=== PATIENT | male | born 1955 ===

== ENCOUNTER 2019-02-13 00:51 | Day surgery (SDC) | payer MEDICARE, MEDICAID ==
[~2019-02-13] VITALS: Ht 167.6 cm; Wt 78.5 kg
[2019-02-13] VITALS (8 sets, daily range): BP systolic 145–166; BP diastolic 87–107
[~2019-02-13 00:51] MED LIST: CITA-145 PO; CLON-388 PO; FLUT1DIS29 IH; IBUP600T22 PO; IBUP800T37 PO; LISI-362 PO; TRAZ100T31 PO
[2019-02-13] MEDS ORDERED: CELECOXIB 200 MG CAP PO ONE (08:30)
[2019-02-13] MEDS ORDERED: FAMOTIDINE 20 MG TAB PO ONE (09:00)
[2019-02-13] MEDS ORDERED: NORMOSOL R SOLN(*) 1000 ML BAG 1,000 ML IV PRN (09:00)
[2019-02-13] MEDS ORDERED: LIDOCAINE/SOD BICARB 8.4% SYR ID ONE (09:00)
[2019-02-13] MEDS ORDERED: MIDAZOLAM 2 MG/2 ML VIAL IVP PRN (09:00)
[2019-02-13] MEDS ORDERED: BACITRACIN/POLYMY B OINT 15 GM TP ONE (09:33)
[2019-02-13] MEDS ORDERED: BUPIV/EPI 0.25% 1:200,000 50ML INFIL ONE (09:33)
[2019-02-13] MEDS ORDERED: ROPIVACAINE 0.2% 20 ML VIAL ONE (09:34)
[2019-02-13] MEDS ORDERED: ceFAZolin(*) 2GM/D5W 50ML 50 ML IVPB ONE (09:45)
[2019-02-13] MEDS ORDERED: MIDAZOLAM 2 MG/2 ML VIAL ONE (09:49)
[2019-02-13] MEDS ORDERED: ONDANSETRON 4 MG/2 ML VIAL ONE (12:39)
[2019-02-13] MEDS ORDERED: PROPOFOL EMUL(*) 10MG/ML 20 ML 20 ML ONE (12:39)
[2019-02-13] MEDS ORDERED: DEXAMETHASONE SOD PHOS 10MG/ML ONE (12:39)
[2019-02-13] MEDS ORDERED: fentaNYL CITR 100 MCG/2 ML AMP ONE (13:15)
[2019-02-13] MEDS ORDERED: OXYC5CAP21 PO (13:19)
[2019-02-13] MEDS ORDERED: CEPH500T7 PO (13:28)
[2019-02-13] MEDS ORDERED: oxyCODONE HCL 5 MG CAP ONE (14:24)
[2019-02-13] MEDS ORDERED: hydrALAZINE HCL 20 MG/ML VIAL IVP ONE (14:50)
--- NOTE | 2019-02-13 14:50 | OPERATIVE REPORT 1 ---
EVENT DATE: February 13, 2019 SURGEON: Wilman Moran MD ANESTHESIOLOGIST: Gunner Duran MD ANESTHESIA: General. IT OPERATIONS ANALYST: MARK Newsome PREOPERATIVE DIAGNOSIS Advanced degenerative change, right wrist, with cubital tunnel syndrome. POSTOPERATIVE DIAGNOSIS Advanced degenerative change, right wrist, with cubital tunnel syndrome. PROCEDURES PERFORMED 1. Right total wrist fusion with iliac crest bone autograft (07925). 2. Posterior interosseous neurectomy and anterior interosseous neurectomy (30595 times two). 3. Cubital tunnel release in situ (53606). 4. Intraoperative radiography for screw lengths and hardware position (60435). ESTIMATED BLOOD LOSS 50. INTRAVENOUS FLUIDS 1200. TOURNIQUET TIME 12 minutes up, 20 minutes down, 86 minutes up, and the tourniquet pressure was 250 mmHg. SUMMARY OF PROCEDURE The patient was brought into the operating room and placed on the OR table in the supine position. After obtaining adequate general anesthesia, the right upper extremity and the right iliac crest were prepped and draped in the usual sterile fashion. A sterile tourniquet was used. The limb was exsanguinated, and the tourniquet was inflated to 250 mmHg. We started with an incision at the cubital tunnel, deepened through skin and subcutaneous tissue. Blunt spreading was taken down, and then we identified one large trunk of the medial antebrachial cutaneous nerve. It was about two to three times the normal size, but no other smaller branches were seen. Once we had mobilized this and protected it, we began the release of the ulnar nerve proximally and followed it distally through Eddy fascia. There was no subluxation. The wound was irrigated, and then we deflated the tourniquet at 12 minutes, looking for a 20- minute down time. During this down time, we exposed the iliac crest by progressive dissection through the skin, subcutaneous tissue, and then through the fascia. A Perley elevator was placed on the outer table to krzysztof its access, and then we placed a Baby Kaur medially to expose the apex of the crest. A dent was made, and then we made a single exposure of the bone through a drill hole using the harvesting tool. After we made our first pass, we made three additional passes through the same hole in a fan-shaped pattern. We got a nice amount of cancellous bone. All of the passes were confirmed to be contained within the tables. The wound was irrigated, and then we took Marcaine-soaked Gelfoam sponges and packed them into the defect, after which we also injected the fascia and the local tissues. The wound was irrigated one more time before closing the fascia with 0 Vicryl, and then we packed it with a moist Ray-Julius as we had for the cubital tunnel. At this time, the 20-minute interval had occurred, so we exsanguinated the limb one more time. I switched places with my social work assistant and then made a dorsal incision on the wrist. The retinaculum was extremely small, but we did save what we could on it and then retracted it. The EPL was radialized and placed on a 1/4-inch [place]. Similarly, the ECRL and ECRB were placed on another Maikol, and then the contents of the fourth dorsal compartment were placed onto a final Maikol, which was retracted to the ulnar side. The fascia was incised. He had an accessory muscle over the hand extensor manus, which was resected. It was innervated by the posterior interosseous nerve terminal branch. A segmental resection of the posterior interosseous nerve was made, after which I made a very small window in the interosseous membrane, identified the posterior portion of the anterior interosseous nerve, and resected this for postoperative pain control as well. After exposing the bones of the carpus and the radius, we then removed the massive bone that had been a problem for him, which turned out to be projecting from the arthritic scaphoid. We also took a portion of the styloid off, which was projecting as well. I then removed what remained for cartilage and then irrigated one final time before using a henri to decorticate all intended fusion surfaces. We packed bone graft from the iliac crest into all the areas that we needed to get fused and then temporarily placed two crossing K-wires as well as the joystick K-wires, allowing for compression. When we got adequate compression, and the K-wires were placed, the joystick toggling K-wires were removed, and we applied the dorsal plate. We placed the first few screws in compression, and then the remainder were placed in locking position. The fluoroscope was used to check the screw lengths as well as the integrity of the fusion. We did eventually remove the temporary crossing K-wires, and once we had full fixation, it looked like the triquetrum was still not quite captured by the screws, so I did place one percutaneous K-wire that helped hold the triquetrum against the rest of the carpal bones so it would not go on to a nonunion. A [place] ball was placed on this one. We irrigated the wound and packed a little bit more bone graft before closing with 4-0 Vicryl for the capsule, which we could close over the top of the plate, after which we closed the retinaculum with 4-0 FiberWire and then deflated the tourniquet. Bipolar cautery was used where necessary for hemostasis, followed by closure using nylon for the wrist, 3-0 and 4-0 Vicryl for the cubital tunnel, and then the 3-0 Vicryl and 4-0 Monocryl for the iliac crest as well. He was given an JULY wrist cooler and then a dressing, followed by a volar splint. He was awakened and transferred to the post-anesthesia care unit in stable condition. AURELIANO
[2019-02-17] MEDS ORDERED: OXYC-865 PO (19:23)
== END 2019-02-13 14:10 | disposition home or self-care (01) ==
LOC: OR 00:51
PROVIDERS: ATTEND Orthopaedic Surgery Hand Surgery
DX: G56.21 Lesion of ulnar nerve, right upper limb (principal)
CPT/HCPCS: 25810; 64784; A4565; A9270; J0360; J1100; J2250; J2405; J2704; J2795; J3010; 76000; 76942; C1713; J0690

== ENCOUNTER → 2019-02-17 | Day surgery (SDC) | payer MEDICARE, MEDICAID ==
[~2019-02-17] VITALS: Ht 167.6 cm; Wt 77.6 kg
[~2019-02-17] MED LIST changes: +BACITRACIN IR PRN; +CEPH500T7 PO; +DEXAMETHASONE SOD 4 MG/ML VIAL ONE; +FAMOTIDINE 20 MG TAB PO ONE; +KETAMINE HCL 200 MG/20 ML MDV ONE; +LIDOCAINE 2% IV 100 MG/5ML SYR ONE; +LIDOCAINE/SOD BICARB 8.4% SYR ID ONE; +MIDAZOLAM 2 MG/2 ML VIAL IVP PRN; +NEOMYCIN/POLYMYX/BACITR 30 GM TP ONE; +NORMOSOL R SOLN(*) 1000 ML BAG 1,000 ML IV PRN; +NS 0.9% IR PRN; +ONDANSETRON 4 MG/2 ML VIAL ONE; +OXYC-865 PO; +OXYC5CAP21 PO; +PROMETHAZINE 25 MG/ML 1 ML AMP ONE; +PROPOFOL EMUL(*) 10MG/ML 20 ML 20 ML ONE; +ROPIVACAINE 0.2% 20 ML VIAL ONE; +SCOPOLAMINE 1.5 MG PATCH TD ONE; +ceFAZolin(*) 1 GM VIAL 1 GM in NS(*) 0.9% 100 ML MINI-BAG 100 ML IVPB ONE; +fentaNYL CITR 100 MCG/2 ML AMP ONE; +fentaNYL CITR 250 MCG/5 ML AMP ONE; +oxyCODON/ACET (*)5/325MG (CII) 1 TAB TAB ONE; +oxyCODONE/ACETAMIN 5/325MG TH 2 TAB/BOTTLE ONE
[2019-02-17 14:55] VITALS: BP 141/100
--- NOTE | 2019-02-17 15:48 | NUR ---
PATIENT STATES HE HAS FELT SOB SINCE SATURDAY. HE STATES HE DOES NOT KNOW IF THIS IS FROM THE PAIN OR SOMETHING ELSE. HE STATES HIS FINGERS HAVE GONE PURPLE AND NUMB. CURRENTLY HIS FINGERS ARE SWOLLEN, CAP REFILL IS LESS THAN 3 SECONDS, UNABLE TO ASSESS PULSE, HE IS ABLE TO WIGGLE HIS FINGERS AND FINGERS ARE PINK AND WARM. HE STATES HE HAD BONE MARROW TAKEN FROM HIS R. HIP. HE STATES HIS PENIS HAS TURNED PURPLE. HE STATES IT IS NO LONGER PURPLE. HIS ABDOMEN BY HIS INCISION HAS REDNESS AND HE STATES IT IS VERY PAINFUL. HE ALSO STATES HE IS HAVING CHILLS AND NAUSEA SINCE HE HAS BEEN HOME. HIS R. ARM IS COVERED WITH AGUSTÍN WRAP AND HIS AGUSTÍN WRAP HAS DRIED BLOOD ON IT.
--- NOTE | 2019-02-17 20:44 | OPERATIVE REPORT 1 ---
EVENT DATE: February 17, 2019 SURGEON: Wilman Moran MD ANESTHESIOLOGIST: Joe Rinaldi MD ANESTHESIA: General. LOCOMOTIVE CRANE ENGINEER: MARK Newsome PREOPERATIVE DIAGNOSIS Superficial dehiscence of medial elbow incision status post cubital tunnel release in situ. POSTOPERATIVE DIAGNOSIS Superficial dehiscence of medial elbow incision status post cubital tunnel release in situ. PROCEDURE PERFORMED Incision and drainage and superficial closure of wound dehiscence (35824). ESTIMATED BLOOD LOSS Minimal. INTRAVENOUS FLUIDS 750. TOURNIQUET TIME None. SPECIMENS None. COMPLICATIONS None. IMPLANTS USED None. SUMMARY OF PROCEDURE The patient was treated for a dehiscence that was of uncertain etiology. He says that there was drainage, so he changed the dressing a couple times, and I am not sure if he actually left the dressing off, but he at one point loaded his elbow and pulled himself towards the elbow against the bed sheet, and it is possible that it tore open during that process. He presented to the office in [place], evaluated by our nurse, and then he drove over here for his closure. It is something that we would often leave open, but since there was an exposed nerve there, we could not do that. It also appeared that the he was reacting to chlorhexidine used on his iliac crest site, so we did not use the Irrisept we were planning on doing. Instead, we used bacitracin in the irrigant and used that for the washout. Normally, I would also use an abrasive plastic bristle brush to ensure that we removed as much contaminant and debris as possible, but again, we have the medial endobrachial cutaneous nerves and the ulnar nerve sitting right in the incision, so that was not possible. For that reason, he was taken to the operating room. The right upper extremity was prepped and draped using Betadine. We then draped out the wrist and pin and then focused only on the dehiscence of the medial aspect of the elbow. We used the aforementioned cleaning technique and irrigated it with a liter of fluid. There was no overt sign of infection. The tissues were still in good condition. We closed with 0 outside nylon suture using a series of vertical mattress sutures. That way there would be all monofilament used to minimize the risk of infection, and we would also have no internal sutures at all. Prior to doing this, of course, we did remove all the residual monofilament Monocryl as well as the Vicryl done previously. He was given a dry, sterile dressing, and this time we placed him into a long-arm splint in hopes of minimizing the chance that he messes with the incision in any way. AURELIANO
== END ==
LOC: OR 12:20
PROVIDERS: ATTEND Orthopaedic Surgery Hand Surgery
DX: T81.31XA Disruption of external operation (surgical) wound, not elsewhere classified, initial encounter (principal)
CPT/HCPCS: 12020; A9270; J0690; J1100; J2001; J2250; J2405; J2550; J2704; J3010; J3490; J2795